=== PATIENT | female | born 1965 | race Caucasian/White ===

== ENCOUNTER 2023-04-11 09:13 | Emergency (ER) | payer BC, OTHER ==
[2023-04-11 09:38] VITALS: PULSE 57; RESP 15; TEMP 98.8; O2SAT 96
--- NOTE | 2023-04-11 10:50 | ERPHSYRPT ---
- History of Present Illness Time Seen by Provider: 04/11/23 10:45 Source: patient Exam Limitations: no limitations Patient Subjective Stated Complaint: hypertension Triage Nursing Assessment: Pt brought to the ER by her friend, hypertensive, denies pain, pulses normal, pt knew she was having HTN and has been checking it at home but a friend had her check with her at [facility] today and it was in the 200's so she brought her to the ER, pt states that she has an appt with a doctor in June but I informed her that she would need to make an appt for this week, no difficulty breathing, skin n/w/d, denies chest pain, did have a headache but it is gone, stopped smoking 6 months ago Physician History: Patient is a 57-year-old female presents to our ED for evaluation of asymptomatic hypertension. Patient currently has a appointment scheduled with her primary care doctor. However she will not see the doctor till June. Patient became concerned when she checked her blood pressure at [facility]. Systolic was 200. Patient has no complaints. Patient is aware that she has a history of hypertension however she for unclear reasons stopped taking her blood pressure medication. No chest pain or shortness of breath. No nausea vomiting or diaphoresis. Patient voices no other complaints or concerns at this time. Portions of this note were created with voice recognition technology. There may be grammatical, spelling, punctuation or sound alike errors Timing/Duration: today Severity: moderate Modifying Factors: Improves With: nothing Associated Symptoms: denies symptoms Allergies/Adverse Reactions: No Known Drug Allergies Allergy (Verified 04/11/23 09:38) Home Medications: Diclofenac Sodium 75 mg PO BID 04/11/23 [History] Gabapentin [Neurontin ] 100 mg PO TID 04/11/23 [History] Glimepiride 2 mg [Amaryl 2 MG] 2 mg PO BID 04/11/23 [History] Hx Influenza Vaccination/Date Given: No Hx Pneumococcal Vaccination/Date Given: No Travel Risk - International Travel Have you traveled outside of the country in past 3 weeks: No - Coronavirus Screening Are you exhibiting any of the following symptoms?: No Close contact with a COVID-19 positive Pt in past 14-21 Days: No - Vaccine Status Have you recieved a Covid-19 vaccination: No - Review of Systems Constitutional: No Symptoms, No Fever, No Chills Eyes: No Symptoms Ears, Nose, & Throat: No Symptoms Respiratory: No Symptoms, No Cough, No Dyspnea Cardiac: No Symptoms, No Chest Pain, No Edema, No Syncope Abdominal/Gastrointestinal: No Symptoms, No Abdominal Pain, No Nausea, No Vomiting, No Diarrhea Genitourinary Symptoms: No Symptoms, No Dysuria Musculoskeletal: No Symptoms, No Back Pain, No Neck Pain Skin: No Symptoms, No Rash Neurological: No Symptoms, No Dizziness, No Focal Weakness, No Sensory Changes Psychological: No Symptoms Endocrine: No Symptoms Hematologic/Lymphatic: No Symptoms Immunological/Allergic: No Symptoms All Other Systems: Reviewed and Negative - Past Medical History Pertinent Past Medical History: Yes Endocrine Medical History: Diabetes Type II - Past Surgical History Past Surgical History: Yes Female Surgical History: Hysterectomy Other Surgical History: 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 - Social History Smoking Status: Former smoker Exposure to second hand smoke: No Drug Use: marijuana Patient Lives Alone: No - Nursing Vital Signs Nursing Vital Signs: Initial Vital Signs Temperature 98.8 F 04/11/23 09:24 Pulse Rate 57 L 04/11/23 09:24 Respiratory Rate 15 04/11/23 09:24 Blood Pressure 215/81 04/11/23 09:24 O2 Sat by Pulse Oximetry 96 04/11/23 09:24 Pain Scale Pain Intensity 0 - Physical Exam General Appearance: no apparent distress, alert Eye Exam: PERRL/EOMI, eyes nml inspection Ears, Nose, Throat Exam: normal ENT inspection, TMs normal, pharynx normal, moist mucous membranes Neck Exam: normal inspection, non-tender, supple, full range of motion Respiratory Exam: normal breath sounds, lungs clear, No respiratory distress Cardiovascular Exam: regular rate/rhythm, normal heart sounds, normal peripheral pulses Gastrointestinal/Abdomen Exam: soft, normal bowel sounds, No tenderness, No mass Back Exam: normal inspection, normal range of motion, No CVA tenderness, No vertebral tenderness Extremity Exam: normal inspection, normal range of motion, pelvis stable Neurologic Exam: alert, oriented x 3, cooperative, normal mood/affect, nml cerebellar function, nml station & gait, sensation nml, No motor deficits Skin Exam: normal color, warm, dry, No rash Lymphatic Exam: No adenopathy SpO2 Interpretation: normal SpO2: 96 O2 Delivery: Room Air - Course Nursing assessment & vital signs reviewed: Yes Ordered Tests: Medication Summary Generic Name Dose Route Start Last Admin Trade Name John PRN Reason Stop Dose Admin Nifedipine 60 mg 04/12/23 10:17 04/11/23 10:29 Nifedipine Xl 30 Mg Tablet.Sa PO 04/12/23 10:18 60 mg STAT ONE Administration - Progress Progress: improved Progress Note: We contacted Dr. Jose's office. He advised 60 mg of nifedipine XL. Nifedipine administered in our ED per his request. He will call in a p rescription for the same. Patient to follow-up with her primary care doctor as scheduled. No indication for workup. Patient is asymptomatic. Will discharge home. Vital stable. She voices no other complaints or concerns at this time. Portions of this note were created with voice recognition technology. There may be grammatical, spelling, punctuation or sound alike errors Complexity problem addressed is low acute uncomplicated No critical care time Complexity of data reviewed and analyzed is none. Diagnosis made based on history and physical exam. No specialized testing ordered Risk of complication and or risk morbidity/mortality of patient management is moderate. We consulted with patient's primary care doctor for management and plan of care Vital stable. Time spent to discharge patient is approximately 20 minutes. Plan of care established for shared decision making. No social determinants of health present impede follow-up. Portions of this note were created with voice recognition technology. There may be grammatical, spelling, punctuation or sound alike errors 04/11/23 10:47 Counseled pt/family regarding: diagnosis, need for follow-up - Departure Departure Disposition: Home Clinical Impression: Hypertension Condition: Stable Critical Care Time: No Referrals: SAMMY JOSE [Primary Care Provider] - Follow up/PCP as directed Additional Instructions: Discharge/Care Plan GREGORY VILLA was seen on 04/11/23 in the Emergency Room. The patient was counseled regarding Diagnosis,Lab results, Imaging studies, need for follow up and when to return to the Emergency Room. Prescriptions given: Discharge Note I have spoken with the patient and/or caregivers. I have explained the patient's condition, diagnosis and treatment plan based on the information available to me at this time. I have answered the patient's and/or caregiver's questions and addressed any concerns. The patient and/or caregivers have as good understanding of the patient's diagnosis, condition and treatment plan as can be expected at this point. The vital signs have been stable. The patient's condition is stable and appropriate for discharge from the emergency department. The patient will pursue further outpatient evaluation with the primary care physician or other designated or consulting physician as outlined in the discharge instructions. The patient and/or caregivers are agreeable to this plan of care and follow-up instructions have been explained in detail. The patient and/or caregivers have received these instruction. The patient/and or caregivers are aware that any significant change in condition or worsening of symptoms should prompt an immediate return to this or the closest emergency department or call 911.
[2023-04-11 11:03] VITALS: BP 197/59
[2023-04-12] MEDS ORDERED: Adalat CC 30 MG TABLET PO ONE (10:17)
== END 2023-04-11 11:08 | disposition home or self-care (01) ==
LOC: ED 09:13
DX: I10 Essential (primary) hypertension (principal); E11.9 Type 2 diabetes mellitus without complications; Z79.84 Long term (current) use of oral hypoglycemic drugs; Z79.899 Other long term (current) drug therapy; Z28.310 Unvaccinated for COVID-19
CPT/HCPCS: 99282; A9270-GY